=== PATIENT | female | born 1990 | race American Indian/Alaskan Native ===

== ENCOUNTER 2021-06-24 10:00 | Inpatient (IN) | payer OTHER ==
[2021-07-06 12:56] LABS: Basophils % (Auto) 0.7 % (0.0-1.8); Eosinophils % (Auto) 0.4 % (0.0-4.3); Hematocrit 37.9 % (30.3-42.9); Hemoglobin 12.3 gm/dl (10.1-14.3); Lymphocytes # (Auto) 1.8 K/mm3 (1.2-5.4); Lymphocytes % (Auto) 31.2 % (13.4-35.0); Mean Corpuscular HGB Conc 33 % (30-34); Mean Corpuscular Volume 84 fl (79-97); Monocytes # (Auto) 0.4 K/mm3 (0.0-0.8); Monocytes % (Auto) 7.7 % (0.0-7.3); Platelet Count 272 K/mm3 (140-440); Red Blood Count 4.53 M/mm3 (3.65-5.03)
--- NOTE | 2021-07-06 15:18 | Anesthesia Consultation ---
Anesthesia Consult and Med Hx Date of service: 07/08/21 - Airway Anesthetic Teeth Evaluation: Good ROM Head & Neck: Adequate Mental/Hyoid Distance: Adequate Mallampati Class: Class II Intubation Access Assessment: Good - Pre-Operative Health Status ASA Pre-Surgery Classification: ASA3 Proposed Anesthetic Plan: General Nerve Block: TAP - Pulmonary Hx Smoking: No Hx Sleep Apnea: No - Central Nervous System Hx Seizures: Yes (Grand mal; none in 15 years) Hx Psychiatric Problems: No - Gastrointestinal Hx Gastroesophageal Reflux Disease: No - Hematic Hx Anemia: Yes Hx Sickle Cell Disease: No - Other Systems Hx Alcohol Use: Yes (OCC.) Hx Substance Use: No Hx Cancer: No Hx Obesity: Yes
[2021-07-08] MEDS ORDERED: CELECOXIB 200 MG CAP PO NR (06:00)
[2021-07-08] MEDS ORDERED: MAGNESIUM OXIDE 400 MG TAB PO ONE ×2 (06:00→11:18)
[2021-07-08] MEDS ORDERED: fentaNYL 100 MCG/2 ML INJ IV SCH (06:00)
[2021-07-08] MEDS ORDERED: LACTATED RINGERS 1,000 ML IV SCH (06:00)
[2021-07-08] MEDS ORDERED: ACETAMINOPHEN 500 MG TAB PO SCH (06:00)
--- NOTE | 2021-07-08 07:28 | History and Physical Report ---
History of Present Illness Date of examination: 06/24/21 Chief complaint: Pelvic Pain, Fibroid Uterus History of present illness: Pt is a 31 year old -[place] female nulligravida who presents for surgical management of pelvic pain and approximately 10.9 cm fibroid noted on pelvic ultrasound in May 2021. Past History Past Medical History: seizure (last seizure age 16, Keppra 500 mg BID ), other (Obesity ) Past Surgical History: no surgical history [employer]OR History: fibroids (per HPI) Family/Genetic History: hypertension Social history: no significant social history - Obstetrical History : 0 Medications and Allergies Allergies Allergy/AdvReac Type Severity Reaction Status Date / Time No Known Allergies Allergy Unverified 07/01/21 11:08 Home Medications Medication Instructions Recorded Confirmed Last Taken Type Ibuprofen [Motrin] 800 mg PO Q8HR PRN 07/01/21 07/01/21 Unknown History Oxycodone-Acetaminophen 5-300 5 mg PO PRN 07/01/21 07/01/21 Unknown History levETIRAcetam [Keppra TAB] 500 mg PO BID 07/01/21 07/01/21 Unknown History Active Meds: Active Medications Acetaminophen (Acetaminophen 500 Mg Tab) 1,000 mg PO ONCE SACHI Celecoxib (Celecoxib 200 Mg Cap) 400 mg PO PREOP NR Stop: 07/08/21 23:00 Fentanyl (Fentanyl 100 Mcg/2 Ml Inj) 100 mcg IV ONCE SACHI Lactated Ringer's (Lactated Ringers) 1,000 mls @ 125 mls/hr IV DIRECT SACHI Cefazolin Sodium (Ancef/Sterile Water 2 Gm/20 Ml) 2 gm in 20 mls @ 80 mls/hr IV PREOP NR; Protocol Methocarbamol (Methocarbamol 750 Mg Tab) 1,500 mg PO ONCE SACHI Midazolam HCl (Midazolam 2 Mg/2 Ml Inj) 2 mg IV PREOP NR Stop: 07/08/21 23:59 Review of Systems All systems: negative - Vital Signs Vital signs: Vital Signs Temp Pulse Resp BP Pulse Ox 97.7 F 59 L 16 111/71 100 07/06/21 12:45 07/06/21 12:45 07/06/21 12:45 07/06/21 12:45 07/06/21 12:45 Temp Pulse Resp BP Pulse Ox 97.7 F 59 L 16 111/71 100 07/06/21 12:45 07/06/21 12:45 07/06/21 12:45 07/06/21 12:45 07/06/21 12:45 - Physical Exam Breasts: Positive: deferred Cardiovascular: Regular rate Lungs: Positive: Clear to auscultation Abdomen: Positive: soft (obese ) Uterus: Positive: enlarged Extremities: Positive: normal Results Result Diagrams: 07/06/21 12:35 All other labs normal. Assessment and Plan A: Pelvic Pain Fibroid Uterus Obesity Seizure Disorder P: Proceed with exploratory laparotomy, myomectomy and other indicated procedures Cell Saver requested
[2021-07-08] MEDS ORDERED: ceFAZolin/Water 2 GM/20 ML 2 GM/20 ML SYRINGE IV NR (08:00)
[2021-07-08] MEDS ORDERED: HYDROmorphone 1 MG/1 ML INJ IV PRN ×2 (09:19)
[2021-07-08] MEDS ORDERED: ONDANSETRON 4 MG/2 ML INJ IV PRN ×2 (09:19→16:30)
--- NOTE | 2021-07-08 09:19 | Anesthesia Day of Surgery ---
Anesthesia Day of Surgery - Day of Surgery Patient Examined: Yes Patient H&P Reviewed: Yes Patient is NPO: Yes
[2021-07-08] MEDS ORDERED: BUPIVACAINE/PF (0.25%) 2.5 MG/ML 30 ML VIAL INFILTRATI ONE (09:21)
[2021-07-08] MEDS ORDERED: dexAMETHasone 4 MG/ML VIAL ONE (09:21)
[2021-07-08] MEDS: MIDAZOLAM 2 MG/2 ML INJ IV NR ×2 (09:27→09:33)
[2021-07-08] MEDS ORDERED: fentaNYL 100 MCG/2 ML INJ ONE (11:04)
[2021-07-08] MEDS ORDERED: LIDOCAINE MPF (2%) 20 MG/1 ML VIAL 5 ML ONE (11:04)
[2021-07-08] MEDS ORDERED: ROCURONIUM 50 MG/5 ML INJ IV ONE (11:04)
[2021-07-08] MEDS ORDERED: KETAMINE/STERILE WATER 50 MG/ML SYRINGE ONE (11:05)
[2021-07-08] MEDS ORDERED: propofoL 200 MG/20 ML VIAL IV ONE (11:05)
[2021-07-08] MEDS ORDERED: METHYLENE BLUE 50 MG/10 ML AMP ONE (11:10)
[2021-07-08] MEDS ORDERED: SODIUM CHLORIDE 0.9% 100 ML ONE (11:11)
[2021-07-08] MEDS ORDERED: VASOPRESSIN 20 UNIT/1 ML INJ ONE (11:11)
[2021-07-08] MEDS ORDERED: ONDANSETRON 4 MG/2 ML INJ ONE (12:02)
[2021-07-08] MEDS ORDERED: dexAMETHasone 20 MG/5 ML VIAL ONE (12:02)
[2021-07-08] MEDS ORDERED: LACTATED RINGERS 1,000 ML ONE (12:02)
[2021-07-08] MEDS ORDERED: VASOPRESSIN 20 UNIT/1 ML INJ IM ONE (12:08)
[2021-07-08] MEDS ORDERED: SODIUM CHLORIDE 0.9% 100 ML IVPB IV ONE (12:11)
[2021-07-08] MEDS ORDERED: SODIUM CHLORIDE 0.9% IRR 1,500 ML BOTTLE IR ONE (12:11)
[2021-07-08] MEDS ORDERED: ePHEDrine SULFATE 50 MG/1 ML INJ ONE (12:46)
[2021-07-08] MEDS ORDERED: KETOROLAC 30 MG/1 ML INJ ONE (13:24)
[2021-07-08] MEDS ORDERED: GLYCOPYRROLATE 0.4 MG/2 ML INJ ONE (13:24)
[2021-07-08] MEDS ORDERED: NEOSTIGMINE 10MG/10 ML INJ MDV ONE (13:24)
--- NOTE | 2021-07-08 13:53 | Post Operative Note ---
Pre-op diagnosis: Pelvic Pain, Fibroid Uterus Post-op diagnosis: same Findings: 20-22 wk sized fibroid uterus with 17 cm subserosal fibroid Procedure: Abdominal Myomectomy Anesthesia: GETA Surgeon: YO RHODES Mural Artist: PERLA KNOX Estimated blood loss: other (450 mL) Pathology: list (fibroid, serosa) Specimen disposition: to lab Condition: stable Disposition: PACU
--- NOTE | 2021-07-08 13:53 | Operative Report ---
Operative Report Operative Report: Date of procedure: July 08, 2021 Preoperative diagnosis: 1) Pelvic Pain 2) Fibroid Uterus Postoperative diagnosis: Same Procedure: Abdominal Myomectomy Surgeon: Noreen Gallegos MD Esthetician/Owner: Maria Isabel Myers MD Anesthesia: General endotracheal anesthesia Findings: 1) 20-22 wk sized uterus with 17 cm subseorsal fibroid occupying the superior portion of the uterus; fibroid noted to weight ~1700g 2) Normal appearing ovaries and fallopian tubes 3) Endometrial cavity was entered during the procedure EBL: 450 mL Cell Saver: 225 mL Urine output: Clear at the end of the procedure Specimens: Fibroid and excised serosa to pathology Drains: Davis to gravity Complications: None. Counts correct x 2. Disposition: stable to PACU Indication: Pt is a 31 year old -[place] female nulligravida who presents for surgical management of uterine fibroids and pelvic pain. Operation in detail: After the risks, benefits, alternatives and complications of the procedure were explained to the patient, she gave informed consent for the procedure. She was subsequently taken to the operating room with her IV noted to be running well and placed in the dorsal supine position. SCDs were noted to be in place and functioning. General anesthesia was induced without difficulty. An exam under anesthesia revealed a 20-22 wk sized uterus. The patient was subsequently prepped and draped in a normal fashion and a davis catheter was placed. A time out was performed. A Pfanenstiel skin incision was made with knife and carried down to the fascia with the Bovie. The fascia was incised in the midline with the Bovie, and the incision was extended bilaterally. Attention was then turned to the superior aspect of the fascial incision which was grasped with two Kochers, tented up and dissected off the rectus muscles. Attention was then turned to the inferior aspect of the incision which was grasped with two Kochers, tented up, and dissected off the rectus muscles. The rectus muscles were in the midline and partially transected for adequate visualization. The peritoneum was entered sharply between Korin clamps and the peritoneal incision was extended superiorly and inferiorly with the Bovie. The peritoneal incision was then stretched. At this time the uterus was grasped with a Hugo clamp, and delivered through the incision with some difficulty. A large fibroid was palpated at the uterine fundus. Two incisions were made to access the uterine fibroid both on the anterior surface of the uterus. The planned incision track was infiltrated with a dilute Vasopressin solution prior to incision. Bovei cautery was used to incise the serosa. The fibroid was grasped with multiple Hugo clamps and a combination of dissection with the Bovie, blunt dissection and sharp dissection with Centeno scissors were used to excise the fibroid. The endometrial cavity was entered during the dissection. After the fibroid was excised, the excess serosa was excised and sent to pathology. The remaining defect at the fundus was reapproximated with multiple layers of figure of eights of 0-Vicryl, including the serosal layer. The abdomen was irrigated. Hemostasis was noted. The incision was then covered with Surgicel. Intercede was then placed over the anterior surface of the uterus and the fundus. The uterus was returned to the peritoneal cavity. The peritoneum and rectus muscles were then reapproximated with 2-0 Vicryl in a running fashion. The fascial incision was reapproximated with 0-Vicryl in a running fashion. The subcutaneous tissue was reapproximated with 3-0 Vicryl in a running fasion. The skin was reapproximated with 4-0 Vicryl in a subcuticular fashion. The incision was then covered with Steri-Strips and a pressure dressing. The procedure was then ended. The patient was extubated without difficulty and taken to the PACU in stable condition. All instrument, lap and needle counts were correct x 2. This pt has been counseled that she should be delivered via section should she become .
[2021-07-08] MEDS ORDERED: KETOROLAC 30 MG/1 ML INJ IV SCH (15:51)
[2021-07-08] MEDS ORDERED: ceFAZolin/NS 1 GM/50 ML 1 GM/50 ML BAG IV SCH (15:51)
[2021-07-08] MEDS ORDERED: ACETAMINOPHEN 325 MG TAB PO PRN (16:00)
[2021-07-08] MEDS ORDERED: NALOXONE 0.4 MG/1 ML INJ IV PRN (16:30)
[2021-07-08] MEDS ORDERED: D5W/LACTATED RINGERS 1,000 ML IV SCH (16:30)
[2021-07-08] MEDS ORDERED: MAGNESIUM HYDROXIDE (MOM) ORAL LIQD UDC PO PRN (17:00)
[2021-07-08] MEDS: HYDROmorphone 2 MG/1 ML INJ IV PRN (17:13)
[2021-07-08] MEDS: IBUPROFEN 800 MG TAB PO SCH (17:16)
--- NOTE | 2021-07-08 18:32 | Post Anesthesia Evaluation ---
- Post Anesthesia Evaluation Patient Participated: Yes Airway Patent: Yes Stable Respiratory Function: Yes Nausea/Vomiting: No Temp > 96.8F: Yes Pain Manageable: Yes Adequeate Hydration: Yes Anesthesia Complications: No Block Receding Appropriately: Yes Patient on Ventilator: No
[2021-07-08] MEDS: KETOROLAC 30 MG/1 ML INJ IV SCH (21:48)
[2021-07-08] MEDS: DOCUSATE SODIUM 100 MG CAP PO SCH (21:48)
[2021-07-08] MEDS: ceFAZolin/NS 1 GM/50 ML 1 GM/50 ML BAG IV SCH (21:49)
[2021-07-08] MEDS ORDERED: PHENOL 1.4% 177 ML BOTTLE MM PRN (22:00)
[2021-07-09] MEDS: IBUPROFEN 800 MG TAB PO SCH ×3 (01:03→22:07)
[2021-07-09] MEDS: HYDROmorphone 2 MG/1 ML INJ IV PRN (01:04)
[2021-07-09] MEDS: KETOROLAC 30 MG/1 ML INJ IV SCH ×3 (03:29→16:05)
[2021-07-09] MEDS: ceFAZolin/NS 1 GM/50 ML 1 GM/50 ML BAG IV SCH (05:34)
[2021-07-09 08:12] LABS: Hematocrit 29.7 % (30.3-42.9); Hemoglobin 9.3 gm/dl (10.1-14.3)
--- NOTE | 2021-07-09 08:31 | Progress Note ---
Assessment and Plan A: POD#1 s/p abdominal myomectomy Pelvic Pain Fibroid Uterus Obesity Seizure Disorder P: Routine postoperative advances Follow up hemoglobin and hemtocrit Subjective - Subjective Date of service: 07/09/21 Principal diagnosis: POD#1 s/p abdominal myomectomy Interval history: No overnight events. Davis removed, but no void yet. No flatus yet. Tolerating regular diet. Patient reports: appetite normal, pain well controlled, no voiding normally (davis recently removed ), no flatus, no bowel movement, no ambulating normally (Has not yet ambulated ) Objective - Vital Signs Latest vital signs: Vital Signs Temp Pulse Pulse Resp BP BP Pulse Ox 07/09/21 05:30 97.8 F 59 L 20 95/45 98 07/09/21 03:59 18 07/09/21 03:29 18 07/09/21 01:34 18 07/09/21 01:04 18 07/09/21 01:03 18 07/09/21 00:48 98.0 F 76 20 102/49 97 07/08/21 22:18 18 07/08/21 22:00 80 18 100 07/08/21 21:48 18 07/08/21 20:52 97.9 F 84 18 90/53 96 07/08/21 15:49 97.6 F 81 16 131/78 99 07/08/21 15:43 99 07/08/21 15:15 97.6 F 86 16 131/78 100 07/08/21 14:50 97.6 F 78 16 124/59 99 07/08/21 14:35 71 18 124/66 99 07/08/21 14:20 73 19 132/94 100 07/08/21 14:05 67 20 125/59 100 07/08/21 14:00 68 20 126/84 100 07/08/21 13:55 63 19 124/64 100 07/08/21 13:48 97.3 F L 64 16 121/63 100 07/08/21 09:40 64 16 113/62 99 07/08/21 09:30 65 14 109/66 99 07/08/21 09:25 71 14 106/57 99 07/08/21 08:32 98.9 F 69 15 132/66 96 Intake and Output 07/08/21 07/09/21 07/09/21 22:59 06:59 14:59 Intake Total 290 240 Output Total 500 1400 Balance -210 -1160 Intake: IV 50 ANCEF/NS 1 GM/50 ML 1 gm 50 In 50 ml @ 100 mls/hr IV Q8H [facility] Rx#:[id number] Oral 120 Intake, Free Water 120 240 Output: Urine 500 1400 Indwelling Catheter 350 1400 Other: Total, Intake Amount 120 Total, Output Amount 350 500 Voiding Method Indwelling Catheter - Exam Breasts: Present: deferred Abdomen: Present: soft (obese ). Absent: distention Extremities: Present: edema (trace) Incision: Present: dressed
[2021-07-09] MEDS ORDERED: SIMETHICONE 80 MG CHEW TAB PO PRN (09:00)
[2021-07-09] MEDS: DOCUSATE SODIUM 100 MG CAP PO SCH ×2 (09:21→22:07)
[2021-07-09] MEDS: LACTULOSE 20 GM/30 ML ORAL LIQD PO SCH (09:45)
[2021-07-09] MEDS: oxyCODONE /ACETAMINOPHEN 5-325MG TAB PO PRN (11:42)
[2021-07-10] MEDS: IBUPROFEN 800 MG TAB PO SCH ×2 (02:37→10:07)
[2021-07-10] MEDS: oxyCODONE /ACETAMINOPHEN 5-325MG TAB PO PRN (02:38)
[2021-07-10 05:51] VITALS: BP 112/54
--- NOTE | 2021-07-10 07:29 | Progress Note ---
Assessment and Plan A: POD#2 s/p abdominal myomectomy Pelvic Pain Fibroid Uterus Obesity Seizure Disorder P: Continue routine postoperative care Discharge today with follow up in 2 wks for incision check Subjective - Subjective Date of service: 07/10/21 Principal diagnosis: POD#2 s/p abdominal myomectomy Interval history: No overnight events. Voiding without difficulty. No vaginal bleeding. Ambulating without dizziness. Patient reports: appetite normal, voiding normally, pain well controlled, flatus, ambulating normally, no dizzy ambulation, no bowel movement Objective - Vital Signs Latest vital signs: Vital Signs Temp Pulse Pulse Resp BP BP Pulse Ox 07/10/21 05:05 97.9 F 67 18 112/54 97 07/10/21 03:38 18 07/10/21 02:38 18 07/10/21 02:37 18 07/09/21 23:55 98.1 F 75 18 100/39 97 07/09/21 23:01 18 07/09/21 22:07 18 07/09/21 22:00 80 18 100 07/09/21 20:32 97.9 F 72 16 119/65 98 07/09/21 18:26 98.2 F 74 18 113/59 100 07/09/21 12:36 98.0 F 74 18 106/44 97 07/09/21 08:31 98 07/09/21 07:56 98.2 F 63 18 98/47 100 Intake and Output 07/09/21 07/10/21 07/10/21 22:59 06:59 14:59 Intake Total 240 Output Total 500 400 Balance -260 -400 Intake: Oral 240 Output: Urine 500 400 Void 500 400 Other: Total, Intake Amount 240 Total, Output Amount 400 400 Voiding Method Toilet # Voids Void 1 1 - Exam Breasts: Present: deferred Abdomen: Present: soft (obese ) Extremities: Absent: tenderness Incision: Present: dressed - Labs Labs: Abnormal lab results 07/09/21 Range/Units 07:41 Hgb 9.3 L D (10.1-14.3) gm/dl Hct 29.7 L D (30.3-42.9) %
--- NOTE | 2021-07-10 07:32 | Discharge Summary ---
Providers - Providers Date of Admission: 07/08/21 07:51 Date of discharge: 07/10/21 Attending physician: YO GALLEGOS Primary care physician: [employer] Hospitalization Reason for admission: other (Pelvic pain, fibroid uterus ) Procedure details: Abdominal Myomectomy- please see operative report Episiotomy: none Laceration: none Incision: intact Other procedures: none complications: none Discharge diagnosis: other (Fibroid Uterus ) Hospital course: Patient presents for surgical management of pelvic pain and fibroid uterus. She underwent abdominal myomectomy which she tolerated well. Her postoperative course was uncomplicated and she met discharge criteria on postop day #2. She will follow-up in the office in [address] Gallegos for an incision check. Condition at discharge: Stable Disposition: 01 HOME / SELF CARE / HOMELESS - Discharge Diagnoses (1) Fibroid uterus Status: Acute Qualifiers: Uterine leiomyoma location: unspecified location Qualified Code(s): D25.9 - Leiomyoma of uterus, unspecified (2) Pelvic pain Status: Acute (3) Obesity Status: Acute Qualifiers: Obesity type: unspecified obesity type Obesity classification: adult class 2 (BMI 35 - 39.9) Serious obesity comorbidity presence: without serious comorb idity Body mass index: BMI 36.0-36.9 Qualified Code(s): E66.9 - Obesity, unspecified; Z68.36 - Body mass index [BMI] 36.0-36.9, adult (4) Seizure disorder Status: Acute Plan - Provider Discharge Summary Activity: routine, no sex for 6 weeks, no heavy lifting 4 weeks, no strenuous exercise Diet: routine Instructions: routine Additional instructions: [] Smoking cessation referral if applicable(refer to patient education folder for contact #) [] Refer to [facility] Booklet Call your doctor immediately for: * Fever > 100.5 * Heavy vaginal bleeding ( >1 pad per hour) * Severe persistent headache * Shortness of breath * Reddened, hot, painful area to leg or breast * Drainage or odor from incision. * Keep incision clean and dry at all times and follow doctor's instructions regarding bathing/showering - Follow up plan Follow up: KSENIA HUTSON MD [Primary Care Provider] - 7 Days YO GALLEGOS MD [Staff Physician] - 14 Days (Please schedule incision check the week of July 22, 2021)
[2021-07-10] MEDS: LACTULOSE 20 GM/30 ML ORAL LIQD PO SCH (09:31)
[2021-07-10] MEDS: DOCUSATE SODIUM 100 MG CAP PO SCH (09:31)
[2021-07-10] MEDS: levETIRAcetam 500 MG TAB PO SCH ×2 (09:31→09:36)
== END 2021-07-10 10:45 | disposition home or self-care (01) | DRG 743 ==
LOC: 3A 07-08 07:51 → OB 07-08 14:19
PROVIDERS: ADMIT Obstetrics & Gynecology; ATTEND Obstetrics & Gynecology
PROC: 0UB90ZZ Excision of Uterus, Open Approach (ICD-10-PCS; principal; 2021-07-08)
DX: D25.9 Leiomyoma of uterus, unspecified (principal); Z20.822 Contact with and (suspected) exposure to COVID-19; E66.9 Obesity, unspecified; G40.909 Epilepsy, unspecified, not intractable, without status epilepticus; Z68.36 Body mass index [BMI] 36.0-36.9, adult
CPT/HCPCS: 36415; 64450; 84703; 85014; 85018; 85025; 86850; 86900; 86901; 88305; G0378; J1815; J3490; J7060; C1765; J0690; J1100; J1170; J1885; J2250; J2405; J2704; J2710; J3010; J7120; J7121; Q9968; U0003